=== PATIENT | female | born 1965 | race Caucasian/White ===

== ENCOUNTER → 2024-10-28 12:30 | Outpatient (BNVA) | payer SELFPAY | PROVIDERS: Referring Provider Nurse Practitioner; Visit Provider Psychiatry & Neurology Neurology | DX: R20.2 Paresthesia of skin (principal); E53.8 Deficiency of other specified B group vitamins; B02.9 Zoster without complications; G62.9 Polyneuropathy, unspecified; L03.90 Cellulitis, unspecified; R20.0 Anesthesia of skin | CPT/HCPCS: 36415; 82306; 82525; 82607; 82746; 83090; 83735; 83921 ==

== ENCOUNTER 2024-11-18 11:30 | Outpatient (CLI) | payer OTHER, SELFPAY ==
--- NOTE | 2024-11-18 11:45 | MR_ITS ---
WS: [id number] MRI CERVICAL SPINE with and without HISTORY: R20.2 - Paresthesia of skin, history of MS. COMPARISON: None available. Technique: Multiplanar, multisequence noncontrast imaging of the cervical spine. Postcontrast imaging MultiHance 20 mL. Straightening and slight reversal of the normal cervical lordosis. Disc spaces are mildly narrowed an d desiccated. Small osteophytes at several levels. Signal within the cervical cord is normal. Visualized posterior fossa is unremarkable. Craniocervical junction, C1 and C2 relationship, odontoid process and soft tissues are normal. C2-C3: Small vertebral body osteophytes. No stenosis. C3-C4: Small central disc protrusion with mild osteophytic ridging. Mild encroachment upon the ventra l thecal sac. No stenosis. C4-C5: Mild osteophytic ridging and annular disc bulging. LEFT foraminal disc osteophyte and facet di sease resulting in at least moderate stenosis. C5-C6: Diffuse annular disc bulging with osteophytic ridging. Central disc protrusion. Effacement of ventral CSF with slight displacement of the ventral cord. Small bilateral foraminal osteophytes. Mild central and bilateral foraminal stenosis, LEFT greater than RIGHT. C6-C7: Diffuse annular disc bulging with osteophytic ridging. Central disc osteophyte complex. Bilate ral foraminal disc osteophyte complexes. Moderate central with bilateral foraminal stenosis. C7-T1: Normal. No enhancing masses. No demyelinating lesions in the cervical cord. No nerve root mass or enhancement . MR/MR cervical spine wo/w [id number] IMPRESSION: 1. No areas of demyelination noted in the cervical cord. 2. Multilevel areas of disc and osteophyte complexes resulting in stenosis. 3. C4-5: Moderate LEFT foraminal stenosis due to disc osteophyte disease. 4. C5-6: Central disc protrusion with osteophytosis. Mild central with bilater al foraminal stenosis, LEFT greater than RIGHT. 5. C6-7: Moderate central with bilateral foraminal stenosis. Central disc oste ophyte complexes with additional bilateral foraminal disc osteophyte complexes.
[2024-11-18] MEDS: gadobenate dimeglumine 20 mL vial IV (12:08)
== END 2024-11-18 11:31 | disposition home or self-care (01) ==
LOC: RAD 11:33
PROVIDERS: PCP Nurse Practitioner; Visit Provider Psychiatry & Neurology Neurology
DX: M48.02 Spinal stenosis, cervical region (principal); M50.821 Other cervical disc disorders at C4-C5 level; M99.61 Osseous and subluxation stenosis of intervertebral foramina of cervical region; M25.78 Osteophyte, vertebrae; M50.222 Other cervical disc displacement at C5-C6 level; R20.2 Paresthesia of skin; E53.8 Deficiency of other specified B group vitamins; B02.9 Zoster without complications; G62.9 Polyneuropathy, unspecified; L03.90 Cellulitis, unspecified
CPT/HCPCS: 72156; A9577

== ENCOUNTER → 2024-12-10 09:01 | Outpatient (BNVA) | payer OTHER, SELFPAY | PROVIDERS: PCP Nurse Practitioner; Visit Provider Orthopaedic Surgery | DX: M54.2 Cervicalgia (principal) | CPT/HCPCS: 72050 ==